=== PATIENT | male | born 1970 | race Two or more races ===

== ENCOUNTER 2024-07-19 09:29 | Outpatient (CLI) | payer OTHER | END 2024-07-19 09:41 | disposition home or self-care (01) | LOC: SONOGRAMA 09:29 | PROVIDERS: ATTEND Internal Medicine Endocrinology, Diabetes & Metabolism | DX: N31.0 Uninhibited neuropathic bladder, not elsewhere classified (principal); N18.2 Chronic kidney disease, stage 2 (mild); E04.9 Nontoxic goiter, unspecified ==